=== PATIENT | female | born 1985 | race Hispanic/Latino ===

== ENCOUNTER 2018-05-22 12:47 | Emergency (ER) | payer BC, MEDICAID ==
[2018-05-22 12:55] VITALS: BMI 26.3
[2018-05-22 13:01] VITALS: RESP 18
--- NOTE | 2018-05-22 13:26 | ED PDOC ---
Arrival/HPI - General Chief Complaint: Lower Extremity Problem/Injury Time Seen by Provider: 05/22/18 12:52 Historian: Patient - History of Present Illness Narrative History of Present Illness (Text): 05/22/18 13:24 32 /o F w/ h/o discoid lupus (diagnosed 5 months ago) presenting to the Emergency department complaining of acute right foot swelling with associated throbbing pain ongoing for the past several days. She complains of right pedal edema to the ankle for the past 2 days with tenderness to touch. She denies any recent trauma to her foot and is unable to bear weight for long periods of time. Her foot pain is less severe when sitting. The patient reports taking Tylenol for her symptoms with minimal alleviation with Tylenol. Of note her edema slightly improves when elevating it. Patient notes having chronic rash, dry skin, dry mouth, hot flashes and sweating that resolves and denies any visual changes. 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 She denies any history of or current steroid use. She denies fevers, chills, cough, shortness of breath, chest pain, dyspnea on exertion, abdominal pain, nausea, vomiting, diarrhea, back pain, neck pain, headache, dizziness, or any other complaint. Time/Duration: < week Symptom Onset: Sudden Symptom Course: Worsening Quality: Throbbing Activities at Onset: Rest Context: Walking, Home Past Medical History - Provider Review Nursing Documentation Reviewed: Yes - Travel History Have you recently traveled outside [place] w/in the past 3 mons?: No - Infectious Disease Hx of Infectious Diseases: None - Integumentary Other/Comment: ? Discoid lupus - Psychiatric Hx Substance Use: No - Surgical History Other/Comment: Breast augmentation - Anesthesia Hx Anesthesia: Yes Hx Anesthesia Reactions: No Hx Malignant Hyperthermia: No Family/Social History - Physician Review Nursing Documentation Reviewed: Yes Family/Social History: No Known Family HX Smoking Status: Never Smoked Hx Alcohol Use: Yes Frequency of alcohol use: Socially Hx Substance Use: No Allergies/Home Meds Allergies/Adverse Reactions: Allergies No Known Allergies Allergy (Verified 05/22/18 12:55) Home Medications: Home Meds Medication Instructions Recorded Confirmed Desogestrel-Ethinyl Estradiol 1 tab PO DAILY 05/22/18 05/22/18 [Apri 28 Day Tablet] Pantoprazole Sodium [Protonix] 1 tab PO DAILY 05/22/18 05/22/18 Review of Systems - Physician Review All systems were reviewed & negative as marked: Yes - Review of Systems Constitutional: absent: Fevers Eyes: absent: Vision Changes Respiratory: absent: SOB, Cough Cardiovascular: Edema (right pedal edema to ankle). absent: Chest Pain Gastrointestinal: absent: Abdominal Pain, Nausea, Vomiting Musculoskeletal: Myalgias, Other (right pedal pain to touch). absent: Back Pa in, Neck Pain Neurological: absent: Headache, Dizziness Physical Exam Vital Signs Reviewed: Yes Vital Signs Temp Pulse Resp BP Pulse Ox 05/22/18 13:00 98.2 F 78 18 102/72 99 Temperature: Afebrile Blood Pressure: Normal Pulse: Regular Respiratory Rate: Normal Appearance: Positive for: Well-Appearing, Non-Toxic, Comfortable Pain Distress: None Mental Status: Positive for: Alert and Oriented X 3 - Systems Exam Head: Present: Atraumatic, Normocephalic Pupils: Present: PERRL Extroacular Muscles: Present: EOMI Conjunctiva: Present: Normal Mouth: Present: Moist Mucous Membranes Neck: Present: Normal Range of Motion Respiratory/Chest: Present: Clear to Auscultation, Good Air Exchange. No: Respiratory Distress, Accessory Muscle Use Cardiovascular: Present: Regular Rate and Rhythm, Normal S1, S2. No: Murmurs Abdomen: No: Tenderness, Distention, Peritoneal Signs Back: Present: Normal Inspection Upper Extremity: Present: Normal Inspection. No: Cyanosis, Edema Lower Extremity: Present: Edema (3+ pitting right pedal edema ), NORMAL PULSES, Tenderness (tenderness to palpation of dorsal surface of mid-foot of the LLE), Capillary Refill < 2 s. No: CALF TENDERNESS (no tenderness to right calf squeez e) Neurological: Present: GCS=15, CN II-XII Intact, Speech Normal Skin: Present: Warm, Dry, Rashes, Other (multiple superficial nonbleeding ulcers on upper bilateral extremities and ankles, slight tenderness with palpation to ulcer on the dorsal surface to the right foot. ) Psychiatric: Present: Alert, Oriented x 3, Normal Insight, Normal Concentration Medical Decision Making ED Course and Treatment: 05/22/18 13:24 Impression: 32 year old female who presents to the Emergency department with complaints of acute right pedal edema and associated pain. Differential Diagnosis included but are not limited to: Plan: -- Labs -- Valium -- Toradol -- predniSONE -- Urine Culture -- POC Urine Test -- CT of Right ankle -- CT of right foot -- Urinalysis -- Reassess and disposition Progress Notes: 05/22/18 15:03 On reevaluation patient still has tenderness on foot upon weight bearing, but doesn't want to remain in the hospital. Will request lab work and patient will be discharged if lab work is unequivocal. Lab work ordered. 05/22/18 16:02 Lab work unremarkable for acute infection. Patient updated on lab results and advised to follow up with her rhumatologist. Scripts for analgesics with steroids given. Patient reports slight relief and is able to ambulate without assistance. She is stable for discharge. - Lab Interpretations I have reviewed the lab results: Yes - Scribe Statement The provider has reviewed the documentation as recorded by the Scribe Vicky Ellis training with Will Garcia Provider Scribe Attestation: All medical record entries made by the Scribe were at my direction and personally dictated by me. I have reviewed the chart and agree that the record accurately reflects my personal performance of the history, physical exam, medical decision making, and the department course for this patient. I have also personally directed, reviewed, and agree with the discharge instructions and disposition. Disposition/Present on Arrival - Present on Arrival Any Indicators Present on Arrival: No History of DVT/PE: No History of Uncontrolled Diabetes: No Urinary Catheter: No History of Decub. Ulcer: No History Surgical Site Infection Following: None - Disposition Have Diagnosis and Disposition been Completed?: Yes Diagnosis: Right ankle swelling Disposition: HOME/ ROUTINE Disposition Time: 16:02 Patient Plan: Discharge Condition: STABLE Discharge Instructions (ExitCare): Dependent Edema (DC), Lupus (DC), Discoid Lupus Additional Instructions: Please monitor the swelling of foot and return if swelling noted to persist despite elevation, NSAIDs and ice compresses Please follow up with your Rhumatologist Prescriptions: Methylprednisolone [Medrol Dose Pack (21 tabs)] 4 mg PO DAILY #21 mg RX: Naproxen 500 mg PO BID 5 Days #10 tablet Referrals: Isma Hernadez MD [Medical Doctor] - Follow up with primary Forms: [employer] (Somali), WORK NOTE
[2018-05-22 13:56] LABS: URINE BILIRUBIN NEGATIVE (NEGATIVE); URINE BLOOD NEGATIVE (NEGATIVE); URINE GLUCOSE (UA) NEGATIVE (NEGATIVE); URINE LEUKOCYTE ESTERASE MODERATE Leu/uL (NEGATIVE); URINE PROTEIN TRACE mg/dL (<30 mg/dL); URINE UROBILINOGEN 0.2 E.U./dL (<1 E.U./dL)
[2018-05-22 14:01] LABS: URINE APPEARANCE SL CLOUDY (CLEAR); URINE COLOR YELLOW (YELLOW)
[2018-05-22 14:13] LABS: URINE RBC NEGATIVE /hpf (0-2)
[2018-05-22 14:14] LABS: URINE BACTERIA FEW (NEG)
--- NOTE | 2018-05-22 15:24 | RAD ---
PROCEDURE: Radiographs of the right great toe. TECHNIQUE:: AP radiograph of the right foot, with oblique and lateral view of the right great toe. COMPARISON: None. FINDINGS: BONES: Normal. No fracture. JOINTS: Normal. SOFT TISSUES: Normal. OTHER FINDINGS: None. IMPRESSION: Normal right great toe radiographs.
--- NOTE | 2018-05-22 15:38 | RAD ---
Date of service: 05/22/2018 PROCEDURE: Right Ankle Radiographs. HISTORY: h/o discoid lupus w/ swelling COMPARISON: None FINDINGS: BONES: Normal. No fracture. JOINTS: Normal. No osteoarthritis. Ankle mortise maintained. Talar dome intact SOFT TISSUES: Normal. OTHER FINDINGS: None. IMPRESSION: Normal right ankle radiographs.
[2018-05-22 15:42] VITALS: BP 104/76
[2018-05-22 15:43] LABS: BASO # 0.03 K/mm3 (0.0-2.0); BASO % 0.4 % (0.0-3.0); EOS # 0.1 (0.0-0.7); EOS % 1.1 % (1.5-5.0); GRAN # 6.1 (1.4-6.5); HEMOGLOBIN 12.4 g/dL (12.0-16.0); LYMPH # 1.7 (1.2-3.4); LYMPH % 20.4 % (22.0-35.0); MEAN CELL VOLUME 90.5 fl (80.0-105.0); MEAN CORPUSCULAR HEMOGLOBIN 29.5 pg (25.0-35.0); MEAN CORPUSCULAR HGB CONC 32.6 g/dl (31.0-37.0); MEAN PLATELET VOLUME 11.6 fl (7.0-11.0); MONO # 0.4 (0.1-0.6); MONO % 5.1 % (1.0-6.0); RBC 4.2 10^6/uL (3.5-6.1); RED CELL DISTRIBUTION WIDTH 12.2 % (11.5-14.5); WHITE BLOOD COUNT 8.4 10^3/ul (4.5-11.0)
[2018-05-22 15:55] LABS: ALB/GLOB RATIO 1.1 (1.1-1.8); ALBUMIN 3.6 g/dL (3.0-4.8); ALT/SGPT 34 U/L (7-56); AST/SGOT 27 U/L (14-36); BLOOD UREA NITROGEN 11 mg/dL (7-21); CALCIUM 8.6 mg/dL (8.4-10.5); GFR NON-AFRICAN AMERICAN > 60
[2018-05-22 16:57] VITALS: PULSE 76; TEMP 97.6; O2SAT 100
== END 2018-05-22 16:55 | disposition home or self-care (01) ==
LOC: ED 12:47
DX: M79.89 Other specified soft tissue disorders (principal)
CPT/HCPCS: 73610; 73660; 80053; 81001; 85025; 85651; 87086; 96372; 99284; J1885